=== PATIENT | female | born 1990 | race Caucasian/White ===

== ENCOUNTER 2025-01-03 00:43 | Day surgery (SDC) | payer OTHER, SELFPAY ==
[2024-12-27 10:49] VITALS: BMI 20.2
--- NOTE | 2024-12-27 11:23 | PC.NURSE ---
Report to the Outpatient Waiting Room, entrance under the green pavilion located off [facility], at time _0600 on date _01/03/25 . Planned Procedure Time: _0730 .? Time changes happen often and if your time is changed the preop area will call you the afternoon before. - You and your visitor will be asked to self-screen and do not enter if you have any COVID symptoms. Please call surgeon if you need to reschedule. - A mask is optional within the hospital at this time. Patients may have clear liquids (water, carbonated beverages, clear teas, apple juice) until 3 hours prior to surgery with a maximum of 20 ounces. - No food from midnight until time of surgery and no smoking, or chewing tobacco (or any form of nicotine). No chewing gum, candy or mints. Take only the following medications with a SIP of water on the morning of surgery: __NONE DO NOT STOP ANY OF YOUR OTHER PRESCRIPTION MEDICATIONS PRIOR TO SURGERY EXCEPT THE FOLLOWING Hold all vitamins and supplements for 3 days per anesthesiologist. Medications to discontinue per physician Date to take last dose Please no make-up, nail mauritian, hairspray, perfume, deodorant, or body powder the day of surgery.? No jewelry (including any body piercings) or valuables the day of surgery, leave them at home.? Please take a shower or bath the night before, or the morning of, surgery with an antibacterial soap.? Wear comfortable, loose fitting clothing.? - Jewelry must be removed prior to entering the operating room.? Rings and piercings that are not removed may be cut off. - The hospital will not accept responsibility for valuables.? - Please leave all valuables, including medications, at home the day of surgery. If you are going home after surgery, a licensed food service driver must drive you home.? - NO public transportation without another adult if you receive anesthesia. - We recommend that an adult stay with you for 24 hours following discharge. - We also recommend that you do not drive, make important decision, drink alcoholic beverages, or take any drugs that were not prescribed by your health care provider for at least 24 hours after your discharge time. Follow any additional instructions given to you from your surgeon. Telephone instructions given to __EDWIGE and asked if any additional questions and then verbalized understanding. Patient advised to call surgeon office or pre surgery nurse liaison [phone] if any additional questions.
[2025-01-03] VITALS (8 sets, daily range): BP systolic 110–123; BP diastolic 65–76; PULSE 81–109; RESP 12–24; TEMP 36.8–37.1; O2SAT 98–100
--- OUTSIDE RECORDS SUMMARY | 2025-01-03 00:45 | XMS_ITS | Encounter Summary ---
Author Organization [facility] Address [address] [place] [address] Care Team Providers Care Websphere Developer Name Role Phone Carissa Jo APRN-HITESH Primary Care Provider +1- [phone] Josephine Segovia OCULAR CARE TECHNOLOGIST Unavailable Unavailable Reason for Visit * Reason Onset Date Comments MEDICATION REFILL 02/21/2020 Encounter Details Date Type Department Care Team (Late st Contact Info) Description 02/21/2020 Refill [facility] Medical [facility] - Family Medicine [address] [place] [address] [facility] [address] [place] [address] MEDICATION REFILL Social History Tobacco Use Types Packs/Day Years Used Date Smoking Tobacco: Never Smokeless Tobacco: Never Alcohol Use Standard Drinks/Week Comments No 0 (1 standard drink = 0.6 oz pur e alcohol) Comments No Sex and Gender Information Value Date Recorded Sex Assigned at Female 12/17/2020 9:27 AM CDT Legal Sex Female 9:22 PM BALL MILL OPERATOR Gender Identity Female 12/17/2020 9:27 AM CDT Sexual Orientation Bisexual 12/28/2022 10 :29 AM CDT documented as of this encounter Functional Status * Is person deaf or have serious hearing difficulty? Answer Date of Assessment Author No 10/09/2016 6:17 AM Selina Sanford RN * Is person blind or have serious difficulty seeing? Answer Date of Assessment Author No 10/09/2016 6:17 AM Selina Sanford RN * Does person have serious difficulty walking/climbing stairs? Answer Date of Assessment Author No 10/09/2016 6:17 AM Selina Sanford RN * Does person have difficulty dressing/bathing? Answer Date of Assessment Author No 10/09/2016 6:17 AM Selina Sanford RN * Does person have difficulty doing errands alone? Answer Date of Assessment Author No 10/09/2016 6:17 AM Selina Sanford RN documented as of this encounter Mental Status * Does person have difficulty concentrating/remembering/making decisions? Answer Entry Date Author No 10/09/2016 6:17 AM Selina Sanford RN documented in this encounter Plan of Treatment Not on file documented as of this encounter Visit Diagnoses Not on filedocumented in this encounter Care Teams Websphere Developer Relationship Specialty Start Date End Date Carissa Jo APRN-HITESH [address] [place] [address] PCP - General Family Medicine 04/19/15 Josephine Segovia LCPC Behavioral Health Therapist Behavioral Health 07/06/23 documented as of this encounter
--- OUTSIDE RECORDS SUMMARY | 2025-01-03 00:45 | XMS_ITS | Encounter Summary ---
Author Organization [facility] Address [address] [place] [address] Care Team Providers Care Mapping Pilot Name Role Phone Carissa [facility] Primary Care Provider +1- [phone] Josephine Segovia COPIER FIELD SERVICE TECHNICIAN Unavailable Unavailable Reason for Visit * Reason Onset Date Comments MEDICATION REFILL 05/05/2024 Encounter Details Date Type Department Care Team (Late st Contact Info) Description 05/05/2024 Refill [facility] Behavioral Health [address] [place] [id number] [facility] [address] [place] [address] MEDICATION REFILL Social History Tobacco Use Types Packs/Day Years Used Date Smoking Tobacco: Never Smokeless Tobacco: Never Alcohol Use Standard Drinks/Week Comments No 0 (1 standard drink = 0.6 oz pur e alcohol) PHQ-2 Answer Date Recorded Patient Health Questionnaire-2 Score 0 11/02/2023 Education Answer Date Recorded What is the highest level of school you have completed or the highest degree you have received? High school graduate 12/18/2020 Comments No Sex and Gender Information Value Date Recorded Sex Assigned at Female 12/17/2020 9:27 AM CDT Legal Sex Female 9:22 PM TRAINING MGR Gender Identity Female 12/17/2020 9:27 AM CDT [...] Assessment Author No 10/09/2016 6:17 AM Selina Anthony RN documented as of this encounter Mental Status * Does person have difficulty concentrating/remembering/making decisions? Answer Entry Date Author No 10/09/2016 6:17 AM Selina Sanford RN documented in this encounter Plan of Treatment Not on file documented as of this encounter Visit Diagnoses Diagnosis ADHD (attention deficit hyperactivity disorder), inattentive type Attention deficit disorder with hyperactivity documented in this encounter Care Teams Mapping Pilot Relationship Specialty Start Date End Date Carissa Jo APRN-OCEAN FREIGHT FORWARDER [address] [place] [address] PCP - General Family Medicine 04/19/15 Josephine Segovia LCPC Behavioral Health Therapist Behavioral Health 07/06/23 documented as of this encounter
--- OUTSIDE RECORDS SUMMARY | 2025-01-03 00:45 | XMS_ITS | Clinical Summary ---
Author Organization [facility] Address [address] [address] Care Team Providers Care Product Demonstrator Name Role Phone DeysiCarissa Luisito OCAMPO-ASSOCIATE PROFESSOR Primary Care Provider +1- [phone] Josephine Segovia PANEL SEWER Unavailable Unavailable Source Comments [facility],non-owned Affiliates and Associated Physician Practices is amultiple site organization consisting of ambulatory clinics and hospital sitesin [place], [place], [place] and [place]. This disclosure is being madepursuant to the Care Everywhere program and may not contain all information available regarding this patient. Last updated 18.[facility] Allergies Active Allergy Reactions Criticality Noted Date Comments Lac Bovis GI Discomfort Medium 08/23/2024 Causes GI cramping. Depends on amount as how severe it is. Peanut-Derived Vomiting High 08/21/2023 Patient states she just recently became allergic to peanuts. Medications * This document contains information received from the source organization and may not represent a complete record from that organization. * Be aware that medications may not be up to date on this document. Alwaysverify current medications with the patient. cetirizine (ZYRTEC) 10 MG tablet Take 1 (one) tablet by mouth once daily Takes as needed Active escitalopram (Lexapro) 20 MG tabletIndicatio ns:DOMINGO (generalized anxiety disorder) Take 1 (one) tablet by mouth every evening 90 tablet 08/23/2024 Active Active Problems Problem Noted Date Diagnosed Date Attention deficit hyperactivity disorder 024 11/02/2023 Insomnia 02/19/2021 Decreased libido 11/19/2020 Problems with communication Resolved Problems Problem Noted Date Diagnosed Date Resolved Date Anxiety with depression 11/19/202002/05 Immunizations Immunization Administration Dates Next Due INFLUENZA VACCINE, QUADR. 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 NETWORK DEVELOPMENT Gender Identity Female 12/17/2020 9:27 AM CDT Sexual Orientation Bisexual 12/28/2022 10 :29 AM CDT Last Filed Vital Signs Vital Sign Reading Time Taken Comments Blood Pressure 118/74 08/23/2024 10:19 AM DIRECTOR NETWORK DEVELOPMENT Pulse 79 08/23/2024 10:19 AM DIRECTOR NETWORK DEVELOPMENT Temperature 37.1 C (98.8 F) 11/02/2023 4:02 PM DIRECTOR NETWORK DEVELOPMENT Respiratory Rate 18 11/02/2023 4:02 PM DIRECTOR NETWORK DEVELOPMENT Oxygen Saturation 98% 11/02/2023 4:02 PM DIRECTOR NETWORK DEVELOPMENT Inhaled Oxygen Concentration - - Weight 51.5 kg (113 lb 9.6 oz) 08/23/2024 10:19 AM DIRECTOR NETWORK DEVELOPMENT Height 160 cm (5' 2.99 ) 08/23/2024 10:19 AM DIRECTOR NETWORK DEVELOPMENT Body Mass Index 20.13 08/23/2024 10:19 AM DIRECTOR NETWORK DEVELOPMENT Plan of Treatment Health Maintenance Due Date Last Done Comments HEPATITIS B VACCINE (1 of 3 - 19+ 3-dose series) 11/14/2010 HPV VACCINE (2 - 3-dose series) 05/17/2015 04/19/2015 (Postponed) COVID-19 VACCINE (1 - 2023-2 5 season) 2024 DEPRESSION SCREENING 09/07/2024 11/02/2023, 10/13/2022, 02/04/2022 PAP SMEAR 02/04/2025 02/04/2022, 08/02/2018, 04/19/2015 (Postponed) INFLUENZA VACCINE (Season Ended) 2025 06/09/2022 DTAP/TDAP/TD VACCINES (3 - T d or Tdap) 10/10/2026 10/10/2016, 10/16/2015 ZOSTER VACCINE (1 of 2) 11/14/2041 HEPATITIS C SCREENING Completed 06/22/2023 HIV SCREENING Completed 06/22/2023 HIB VACCINE Aged Out No longer eligi ble based on patient's age to complete this topic MENINGOCOCCAL (Group B) VACCINE SHARED DECISION-MAKING Aged Out No longer eligible based on patient's age to complete this topic MENINGOCOCCAL GROUPS A/C/Y/W VACCINE Aged Out No longer eligible b ased on patient's age to complete this topic PNEUMOCOCCAL VACCINE Aged Out No long er eligible based on patient's age to complete this topic Procedures Procedure Name Priority Date/Time Associated Diagnosis Comments HEPATITIS C ANTIBODY Routine 06/22/2023 2:45 PM CDT STD exposure HIV-1 HIV-2 ANTIBODY + HIV P24 AG PANEL Routine 06/22/2023 2:45 PM CDT STD exposure PAP IG LB RFLX HPV APTIMA ASCU 02/04/2022 12:00 AM CDT from Last 3 Months or Most Recently Relevant to Health Maintenance Results * HIV 1 & HIV 2 ANTIBODY (IN HOUSE) (06/22/2023 2:45 PM CDT) Pathologist [facility] HIV1/2 Ab + P24 Ag NON-REACTI VE/NEGATIV E NON-REACTI VE/NEGATIV E 06/22/2023 6:35 PM CDT [facility] Blood BLOOD SPECIMEN / Unknown Venipuncture / Unknown 06/22/2023 2:45 PM CDT 06/22/2023 2:45 PM CDT Carissa Jo [facility] - CHEMISTRY ORDERABLES Final Result Performing Organization Address City/[facility]/ZIP Co de Phone Number [facility] [address], [place] [address] * HEPATITIS C ANTIBODY (06/22/2023 2:45 PM CDT) HCV Antibody Screen Non Reactive Non Reactive 06/23/2023 11:50 AM CDT [facility] Blood BLOOD SPECIMEN / Unknown Venipuncture / Unknown 06/22/2023 2:45 PM CDT 06/22/2023 2:45 PM CDT Narrative [facility] - 06/23/2023 11:50 AM CDT Non Reactive - Antibodies to Hepatitis C virus (HCV) were not detected, result does not exclude early acute HCV infection. Carissa Jo [facility] - CHEMISTRY ORDERABLES Final Result Performing Organization Address City/[facility] Co de Phone Number [facility] [address] [place] [address], [facility] * PAP IG LB RFLX HPV APTIMA ASCU (02/04/2022 12:00 AM CDT) Diagnosis [facility] INSURANCE BILL Comment:NEGATIVE FOR INTRAEP ITHELIAL LESION OR MALIGNANCY. Specimen Adequacy [facility] INSURANCE BILL Comment:Satisfactory for lori luation. No endocervical component is identified. Clinician Provided ICD10 [facility] INSURANCE BILL Comment:Z12.4 Performed by [facility] INSURANCE BILL Comment:Fadi Vidal otechnologist (ASCP) Comment . [facility] INSURANCE BILL Note [facility] INSURANCE BILL Comment: The Pap smear is a screening test designed to aid in the detection of premalignant and malignant conditions of the uterine cervix. It is not a diagnostic procedure and should not be used as the sole means of detecting cervical cancer. Both false-positive and false-negative reports do occur. . IGLBP CPT Code Automation [facility] INSURANCE BILL Comment: This liquid based ThinPrep(R) pap test was screened with the use of an image guided system. Note [facility] INSURANCE BILL Comment: The HPV DNA reflex criteria were not met with this specimen result therefore, no HPV testing was performed. . 02/04/2022 02/06/2022 Narrative [facility] INSURANCE BILL - 02/10/2022 10:08 AM CDT Source.............Cervix No. of containers..01 ThinPrep Vial Resulting Agency Comment Lab Testing performed at: [facility] [address] [facility] [id number] Carissa Jorge Deysi ASSISTANT OPERATIONS MANAGER-ASSOCIATE PROFESSOR LAB - PATHOLOGY/CYTOLOGY O RDERABLES Final Result [facility] [address] [place] [address] from Last 3 Months or Most Recently Relevant to Health Maintenance Insurance [facility] * Guarantor: EDWIGE SHERWOOD Account Type Relation to Patient Date of Phone Billing Address Personal/Family 1990 Advance Directives * Full Code (Latest Code Status on File) Date Activated Date Inactivated Comments 10/09/2016 5:48 AM 10/09/2016 6:46 PM Care Teams Product Demonstrator Relationship Specialty Start Date End Date Carissa Jo APRN-ASSOCIATE PROFESSOR [address] [place] [address] PCP - General Family Medicine 04/19/15 Josephine Segovia LCPC Behavioral Health Therapist Behavioral Health 07/06/23
--- NOTE | 2025-01-03 06:01 | ECG_ITS ---
Test Date: 2025-01-03 06:57:14 Measurements Intervals [place] Rate: 74 P: 73 NH: 145 QRS: 99 QRSD: 89 T: 68 QT: 372 QTc: 413 Interpretive Statements SINUS RHYTHM RIGHT AXIS DEVIATION BASELINE ARTIFACT- AVR BORDERLINE ECG No previous ECG available for comparison Electronically Signed On 01-03-2025 08:03:09 CDT by Jarek Lai D.O.
[2025-01-03 06:45] LABS: Hematocrit 42.9 % (37.0-47.0); Hemoglobin 13.7 g/dL (12.0-15.0); Urine Cotinine NEGATIVE
[2025-01-03] MEDS: LACTATED RINGERS 1,000 ML 30 ML IV CONT ×3 (07:06→12:34)
--- NOTE | 2025-01-03 07:06 | WPDHPUPDATE1 ---
History and Physical Update Update Date/Time: 01/03/25 07:06 History and Physical has been reviewed, including an updated exam of the patient. There are NO changes in the patient's condition. Risks, benefits, and alternatives have been discussed and questions answered. Patient agrees to proceed with procedure.
--- NOTE | 2025-01-03 07:06 | W.PM.PROC2 ---
Procedure Note - Detailed Date of Procedure 01/03/25 Pre-op Diagnosis micromastia, skin laxity Post-op Diagnosis Same Procedure Performed 1. Bilateral augmentation mammaplasty 2. Progressive tension abdominoplasty with suction lipectomy Surgeon Seng Burns MD Anesthesia General Findings Bilateral oDra Bean SoftTouch 330 implants Right: REF# SSM-330 SN [id number] Left: REF# [id number] SN [id number] Tissue removed: 787.8 grams Lipoaspirate: 1,850 cc Description of Procedure They are here today for the above procedures. Previously and again today the risks, benefits, alternatives were discussed in extensive detail. I wanted them to be very realistic about the risks involved as well as expectations. We discussed aftercare and what to monitor for. I was very upfront about the risks of wound breakdown leading to loss of skin, open wounds, and need for additional procedures with permanent abdominal deformity. We discussed DVT/PE risks and management. Made sure answered all of their questions to their satisfaction today and consent was obtained. They were marked in the preoperative holding area with their verification. The patient was taken to the operating room. Anesthesia was provided by anesthesiology. A Sandoval catheter was started. Posterior Placed prone on the operating room table with care taken to protect from injury. Prepped and draped in a standard sterile fashion. A surgical time-out was taken. Stab incisions were made and tumescent solution was infiltrated. Once adequate time was allowed for hemostasis a 5mm basket and 4mm gladis cannula were utilized to complete suction lipectomy based on S.A.F.E. technique in multiple planes and passes. Suction lipectomy continued to result based on pre-operative planning, intra-operative observation, and rolling pinch test which were in full agreement. Breast Patient was then placed supine with care taken to protect from injury. We cleansed the skin and 1% lidocaine and 0.25% Marcaine with epinephrine was used anesthetize as a field block. She was prepped and draped in a standard sterile fashion. Tegaderm nipple Leung were placed. A 15 blade used to make an incision along the inframammary fold. Dissection was continued at 45 degree angle until the chest wall as identified. I elevated a subfascial pocket in the appropriate dimensions based on our preoperative planning for the implant. I then copiously irrigated with saline solution and verified a strict hemostasis. Next the use a triple antibiotic and Betadine containing solution to irrigate the pocket. I washed my gloves with the triple antibiotic and Betadine solution. We washed the implant immediately upon opening it with this solution and only opened it when we needed it. I used implant funnel and no-touch technique. The implant was introduced into the pocket using the funnel. Having verified positioning of the implant this was closed using 2-0 PDS followed by 3-0 Monocryl in a running subcuticular 4-0 Monocryl followed by tissue glue. Abdomen I placed the patient in a flexed position to verify the upper and lower markings would reach. I then placed supine. A thorough abdominal examination was completed. Stab incisions were made and tumescent solution infiltrated. Stab incisions were made and tumescent solution was infiltrated. Once adequate time was allowed for hemostasis a 5mm basket and 4mm gladis cannula were utilized to complete suction lipectomy based on S.A.F.E. technique in multiple planes and passes. Suction lipectomy continued to result based on pre-operative planning, intra-operative observation, and rolling pinch test which were in full agreement. A 10 blade was used to make the upper incision. I continued dissection down to the level of fascia. Elevated just what was necessary for repair of the diastasis. I then again flexed the bed to verify the upper skin flap would reach the lower markings without tension. Once verified I placed her supine once again and a 10 blade used to make the lower incision. I elevated up to level the umbilicus and left the umbilicus intact on a well-vascularized stalk. The intervening tissue was removed. A 2 mm blunt cannula with 0.5% bupivacaine was injected deep to the fascia bilaterally. I plicated the diastasis recti using 0 PDO Stratafix barbed suture. This was in 2 separate layers using 2 separate sutures as well. After the patient was flexed (below) plicated the fascia with 0 PDO Stratafix in two separate layers. both supraumbilical and infraumbilical. The patient was flexed and starting from superior to inferior began plication using 2-0 Vicryl to obliterate all space in a standard progressive tension fashion. At the umbilicus I marked out the location of the skin and inset this with 3-0 Monocryl and 4-0 Vicryl. I continued the remainder of the plication using 2-0 Vicryl until I reached my lower planned scar line. I trimmed any excess skin of the upper flap making sure this was a tension-free closure. 15 Isaiah drain was placed. I then approximated using a 3 point suture with 2-0 Vicryl followed by 2-0 PDO Stratafix, 3-0 Stratafix ,running subcuticular 4-0 Monocryl, and tissue glue. Fluffs, surgical bra and an abdominal binder were placed. The patient was transferred to the bed in a flexed position. [place] and taken to the PACU without difficulty. All instrument and sponge counts were correct at the end of the case. Estimated Blood Loss 100 Drains Yes (15 Isaiah) Packing No Pathology None sent Complications No immediate complications Condition Stable Disposition PACU
[2025-01-03] MEDS: TRANEXAMIC ACID 1,000MG/ISO100 1,000 MG/100 ML BAG 200 MG IVPB (07:07)
--- NOTE | 2025-01-03 07:10 | WPDANESEPPF ---
Anes - Initial Pre Proc Eval Procedure: Operation Date: 01/03/25 07:30 Proposed Procedures p Bilateral Breast Augmentation - Seng Burns MD s Abdominoplasty with Liposuction - Seng Burns MD Date/Time: 01/03/25 07:10 Surgeon: Seng Burns MD Pre Op Diagnosis: micromastia, skin laxity Patient Data Age: 34 Gender: F Height: 1.6 m Weight: 52 kg Allergies Allergy/AdvReac Type Severity Reaction Status Date / Time peanut AdvReac Severe GI UPSET Verified 12/27/24 11:12 lactose AdvReac Intermediate Diarrhea Verified 12/27/24 11:12 Home Medications ?Medication ?Instructions ?Recorded ?Confirmed ?Type No Home Medications 12/27/24 12/27/24 History Laboratory Tests 01/03/25 06:15 Hgb 13.7 g/dL (12.0-15.0) Hct 42.9 % (37.0-47.0) Cotinine Negative Patient hx anesthesia problems: none Family hx anesthesia problems: none Results Review: All pre-operative results and documents have been reviewed as part of the pre-operative evaluation. [facility] Social History Social History Smoking status: Never smoker Alcohol intake: never Substance use: current Substance use type: marijuana Other substance usage details: EDIBLES Last use: 12/19/24 Living arrangements: with family Spiritual care concerns: No Anes - Eval Final PreProcedure Day of Procedure 01/03/25 07:10 Patient weight: normal Heart: regular rate and rhythm Lungs: clear to auscultation Airway: Mallampati scale class II Neurological: alert and oriented Last oral intake: >/= 8 hours ASA classification: II Emergent: no Anesthetic plan: proceed Anesthesia type and monitoring: general ETT and standard monitoring Results Review: All pre-operative results and documents have been reviewed as part of the pre-operative evaluation. Informed Consent: The patient's anesthetic plan and its attendant risks and benefits were discussed with the patient/family/POA. Questions were solicited and answers provided to the satisfaction of the patient/family/POA.
[2025-01-03] MEDS: ceFAZolin 2 GM/D5W 50 ML 2 GM/50 ML BAG IVPB (07:35)
[2025-01-03 07:58] LABS: BEDSIDEPREGUCG Negative (Negative)
[2025-01-03] MEDS: NACL 0.9% IRRIG POUR BOTTLE 900 ML, GENTAMICIN SULFATE INJ 160 MG, ceFAZolin 2 GM, POVI... IRRIGATION (09:22)
[2025-01-03] MEDS: LACTATED RINGERS IRRIG 1,000 ML, LIDOCAINE 1% LOCAL INJ 50 ML, EPINEPHrine HCL INJ 1 MG... INFILTRATE (09:22)
[2025-01-03] MEDS: BUPIVACAINE/EPINEPHRINE 0.5% 50 ML VIAL 60 ML INFILTRATE (09:53)
[2025-01-03] MEDS: ceFAZolin SODIUM 1 GM VIAL 2 GM IV PUSH (11:35)
[2025-01-03] MEDS: fentaNYL CITRATE INJ (*CRX) 100 MCG/2 ML VIAL 25 MCG IV PUSH ×4 (13:06→13:15)
[2025-01-03] MEDS: ONDANSETRON INJ 4 MG/2 ML VIAL IV PUSH (13:28)
== END 2025-01-03 14:31 | disposition home or self-care (01) ==
PROVIDERS: Anesthesiology; Visit Provider Surgery Plastic and Reconstructive Surgery
PROC: (CPT 19325; principal; 2025-01-03 07:30)
PROC: (CPT 19325; 2025-01-03 07:30)
DX: Z41.1 Encounter for cosmetic surgery (principal); L57.4 Cutis laxa senilis; N64.82 Hypoplasia of breast; F12.90 Cannabis use, unspecified, uncomplicated; Z79.1 Long term (current) use of non-steroidal anti-inflammatories (NSAID); Z98.890 Other specified postprocedural states
CPT/HCPCS: 19325; 15830; 15847; 15877; 36415; 80307; 85014; 85018; 93005; J0171; J0690; J1100; J1171; J1580; J2003; J2004; J2250; J2405; J2704; J3010; J7120